=== PATIENT | female | born 1955 | race Caucasian/White ===

== ENCOUNTER 2018-12-26 10:37 | Emergency (ER) | payer OTHER ==
[2018-12-26 11:08] VITALS: BP 131/76
[2018-12-26] MEDS ORDERED: Tetracaine 0.5% OPTH.SOL 15ML* BTL ONE (11:41)
[2018-12-26] MEDS ORDERED: Fluorescein Sodium TOPICAL* 1 MG TEST STRIP OPHTHALMIC ONE (11:41)
--- NOTE | 2018-12-26 11:41 | UC ---
Eye Complaint HPI - HPI Summary HPI Summary: Pt c/o L eye pain that started yesterday. Pt woke up with L eye swollen, redness, and pain today. Discomfort mostly upper lid extending to medial epicanthus, and somewhat post lid. This am noted a little watery drainage, not purulence perse. Does not recall inciting event. Does not wear contact lenses. Has had a sore throat last couple days. No rash. + ear fullness bilat. No fever / chills. Vision not blurry. Planning to go out of town this afternoon. - History of Current Complaint Chief Complaint: UCEye Stated Complaint: EYE COMPLAINT Time Seen by Provider: 12/26/18 11:39 Hx Obtained From: Patient Pain Intensity: 1 - Allergies/Home Medications Allergies/Adverse Reactions: Allergies Allergy/AdvReac Type Severity Reaction Status Date / Time Penicillins Allergy Unknown Verified 12/26/18 11:00 Reaction Details Home Medications: Home Medications Biotin 1 mg PO DAILY 12/26/18 [History Confirmed 12/26/18] Fluticasone/Vilanterol MDI(NF) [Breo Ellipta MDI (NF)] 1 puff INH DAILY [History Confirmed 12/26/18] [place]-3 Fatty Acids/Fish Oil [Fish Oil 1,000 mg Softgel] 1 each PO DAILY [History Confirmed 12/26/18] PMH/Surg Hx/FS Hx/Imm Hx Previously Healthy: Yes - Surgical History Surgical History: Yes Surgery Procedure, Year, and Place: VARICOSE VEINS - Family History Known Family History: Positive: None - Social History Alcohol Use: Occasionally Alcohol Amount: 2 PER WEEK Substance Use Type: None Smoking Status (MU): Former Smoker Amount Used/How Often: PACK A DAY When Did the Patient Quit Smoking/Using Tobacco: 28 YEARS AGO Review of Systems All Other Systems Reviewed And Are Negative: Yes Constitutional: Positive: Negative Skin: Positive: Other - see hpi Eyes: Positive: Other - see hpi ENT: Positive: Sore Throat, Nasal Discharge, Sinus Congestion, Other - see hpi Respiratory: Positive: Cough Cardiovascular: Positive: Negative, Other Gastrointestinal: Positive: Negative Genitourinary: Positive: Negative Motor: Positive: Negative Neurovascular: Positive: Negative Musculoskeletal: Positive: Negative Neurological: Positive: Negative Psychological: Positive: Negative Is Patient Immunocompromised?: No Physical Exam Triage Information Reviewed: Yes Appearance: Well-Appearing, Well-Nourished Vital Signs: Initial Vital Signs Temp 99.4 F 12/26/18 11:02 Pulse 64 12/26/18 11:02 Resp 16 12/26/18 11:02 BP 131/76 12/26/18 11:02 Pulse Ox 96 12/26/18 11:02 Vital Signs Reviewed: Yes Eye Exam: Other - perrla eomi denies vision difficulties. Lids flipped w/o issue. R upper lid red, puffy, tender. L lower lid mild puffy. Flourescein stain neg uptake. No fb detected. L eye is redder than R eye ENT Exam: Other ENT: Positive: Pharyngeal erythema - post pharyng redness, no visible sores / exudates. uvula midline. no stridor., Nasal congestion, TM dull, Other - cerumen in L eac, nonimpacting Neck exam: Normal Neck: Positive: Supple, Nontender, No Lymphadenopathy Respiratory Exam: Normal Respiratory: Positive: Chest non-tender, Lungs clear, Normal breath sounds, No respiratory distress, No accessory muscle use Cardiovascular Exam: Normal Cardiovascular: Positive: RRR, No Murmur, Pulses Normal, Brisk Capillary Refill Abdominal Exam: Normal Abdomen Description: Positive: Nontender Musculoskeletal Exam: Normal - gait steady, moves x 4 exts Neurological Exam: Normal - grossly nonfocal Psychological Exam: Normal - conversing easily and appropriately Skin Exam: Normal - no visible or reported rash, nondiaphoretic. see "eye" Eye Complaint Course/Dx - Course Course Of Treatment: Reviewed coa / tx plan. Questions as posed answered to the best of my ability. Has taken augmentin in the past, without difficulty. Will check with her pcp. Will start ceftin. F/u PCP upon return home, seek medical attention worse or new problems in the meantime. - Differential Dx/Diagnosis Provider Diagnosis: Cellulitis of left eyelid Discharge - Sign-Out/Discharge Documenting (check all that apply): Patient Departure All imaging exams completed and their final reports reviewed: No Studies - Discharge Plan Condition: Stable Disposition: HOME Prescriptions: ceFUROXime TAB(*) [Ceftin TAB 250 MG(*)] 500 mg PO BID #20 tab Olopatadine 0.1% OPHTH (NF) [Patanol 0.1% OPHTH (NF)] 1 drop BOTH EYES BID 14 Days #1 btl Patient Education Materials: Periorbital Cellulitis in Adults (ED), Dry Eye Syndrome (ED) Referrals: Cathy Laughlin MD [Primary Care Provider] - Additional Instructions: Follow up with your primary care physician this week upon return home for eye check. Seek medical attention for worse or new problems. If patanol is covered by insurance, do not start until your eye is back to normal. Please take Probiotic and / or yogurt every day while taking antibiotic. - Billing Disposition and Condition Condition: STABLE Disposition: Home
[2018-12-26] MEDS ORDERED: Tetracaine 0.5% OPTH.SOL 4 ML* 1 DROP BTL ONE (11:56)
== END 2018-12-26 12:32 | disposition home or self-care (01) ==
LOC: UCEAST 10:37
DX: H00.034 Abscess of left upper eyelid (principal); Z88.0 Allergy status to penicillin; Z87.891 Personal history of nicotine dependence
CPT/HCPCS: 87651; 99212; A9270-GY; G0463

== ENCOUNTER 2019-08-24 18:11 | Emergency (ER) | payer OTHER ==
[2019-08-24 18:39] VITALS: BP 133/70
[2019-08-24] MEDS ORDERED: Ondansetron ODT TAB* 4 MG PO ONE (19:07)
[2019-08-24] MEDS ORDERED: Meclizine TAB* 12.5 MG PO ONE (19:07)
--- NOTE | 2019-08-24 19:54 | UC ---
Dizzy HPI HPI Summary: WOKE UP YESTERDAY MORNING FEELING DIZZY. SYMPTOMS IMPROVED THROUGHOUT THE DAY BUT THIS MORNING WOKE UP AGAIN FEELING DIZZY. STATE IN BED MOST OF THE DAY. NO SHORTNESS OF BREATH, CHEST PAIN, VISUAL DISTURBANCES, HEADACHE, WEAKNESS, NUMBNESS/TINGLING. SHE DOES HAVE SOME NAUSEA BUT NO VOMITING. HAS HAD COUGH AND CONGESTION FOR 7-10 DAYS WHICH IS NOW RESOLVED. STATES THE LAST TIME SHE FELT THIS DIZZY WAS ABOUT 20 YEARS AGO WHEN SHE HAD AN INNER EAR INFECTION. IS ALSO CONCERNED ABOUT THE FLU. NO PERSONAL OR FAMILY H/O STROKE. PT IS A NONSMOKER WITH NO SIGNIFICANT PMH. - History Of Current Complaint Chief Complaint: UCDizziness Stated Complaint: EARACHE, DIZZY Time Seen by Provider: 08/24/19 18:57 Hx Obtained From: Patient Onset/Duration: Sudden Onset, Lasting Days - 1 DAY, Still Present Timing: Constant Severity Initially: Moderate Severity Currently: Moderate Pain Intensity: 0 Pain Scale Used: 0-10 Numeric Character: Lightheaded, Dizzy Aggravating Factor(s): Nothing Alleviating Factor(s): Nothing Associated Signs And Symptoms: Positive: Nausea. Negative: Vomiting, Diaphoresis, Tinnitus, Chest Pain, SOB, Palpitations, Unsteady Gait, Visual Changes - Allergies/Home Medications Allergies/Adverse Reactions: Allergies Allergy/AdvReac Type Severity Reaction Status Date / Time Penicillins Allergy Unknown Verified 08/24/19 18:34 Reaction Details Home Medications: Home Medications Fluticasone NASAL SPRAY 50MCG* [Flonase NASAL SPRAY 50MCG*] 2 spray BOTH NARES DAILY 08/24/19 [History Confirmed 08/24/19] PMH/Surg Hx/FS Hx/Imm Hx - Additional Past Medical History Additional PMH: ALLERGIES Respiratory History: Asthma - Surgical History Surgical History: Yes Surgery Procedure, Year, and Place: VARICOSE [facility]INS - Family History Known Family History: Positive: None Family History: NO FAM H/O CVA - Social History Alcohol Use: Occasionally Alcohol Amount: 2 PER WEEK Substance Use Type: None Smoking Status (MU): Former Smoker Amount Used/How Often: PACK A DAY When Did the Patient Quit Smoking/Using Tobacco: 28 YEARS AGO Review of Systems All Other Systems Reviewed And Are Negative: Yes Constitutional: Positive: Negative Eyes: Positive: Negative Respiratory: Positive: Negative Cardiovascular: Positive: Negative Gastrointestinal: Positive: Negative Neurological: Positive: Other - DIZZY. Negative: Headache, Weakness, Paresthesia, Numbness Physical Exam Triage Information Reviewed: Yes Appearance: Well-Appearing, No Pain Distress, Well-Nourished Vital Signs: Initial Vital Signs Temp 98.4 F 08/24/19 18:36 Pulse 56 08/24/19 18:36 Resp 18 08/24/19 18:36 BP 133/70 08/24/19 18:36 Pulse Ox 97 08/24/19 18:36 Laboratory Tests 08/24/19 19:46 Influenza A (Rapid) Negative Influenza B (Rapid) Negative Vital Signs Reviewed: Yes Eyes: Positive: Conjunctiva Clear, Other: - PERRL, EOMI. HORIZONTAL NYSTAGMUS TO THE RIGHT ENT: Positive: Hearing grossly normal, Pharynx normal, TMs normal - LEFT TM RETRACTED Neck: Positive: Supple, Nontender, No Lymphadenopathy Respiratory Exam: Normal Cardiovascular Exam: Normal Abdomen Description: Positive: Soft Musculoskeletal: Positive: No Edema Neurological: Positive: Alert, Muscle Tone Normal, Other: - CN II-XII GROSSLY INTACT BILATERALLY. RAPID ALTERNATING MOVEMENTS INTACT. NEG PRONATOR DRIFT. NEG ROMBERG. 5/5 STRENGTH. HEEL TO LEDESMA INTACT BILATERALLY. TANDEM GAIT CAUTIOUS BUT INTACT. FINGER TO NOSE INTACT. Psychological: Positive: Normal Response To Family, Age Appropriate Behavior Skin: Negative: Rashes Diagnostics - Radiology CT HEAD W/O CONTRAST Radiology Interpretation Completed By: Radiologist Summary of Radiographic Findings: No acute intracranial abnormality. Dizzy Course/Dx - Course Course Of Treatment: PATIENT WITH SUDDEN ONSET OF PERSISTENT DIZZINESS AND NAUSEA. IT IS NOT POSITIONAL AND NOT ASSOCIATED WITH HEAD MOVEMENT. SHE HAS RIGHT-SIDED NYSTAGMUS. CT HEAD UNREMARKABLE. SLIGHT IMPROVEMENT IN SYMPTOMS AFTER 4 MG OF ZOFRAN AND 25 MG OF MECLIZINE. LONG DISCUSSION HAD WITH PATIENT AND HER THAT HOWEVER UNLIKELY IT IS WE ARE UNABLE TO RULE OUT POSTERIOR STROKE IN THE URGENT CARE. [place] AGRE[place] [facility] [place]. - Differential Dx/Diagnosis Provider Diagnosis: Dizziness - Physician Notifications Discussed Patient Care With: Benito Ramos Time Discussed With Above Provider: 20:30 Instructed by Provider To: MD Will See In ED Discharge ED - Sign-Out/Discharge Documenting (check all that apply): Patient Departure All imaging exams completed and their final reports reviewed: Yes - Discharge Plan Condition: Stable Disposition: TRANS [facility] Referrals: Cathy Laughlin MD [Primary Care Provider] - - Billing Disposition and Condition Condition: STABLE Disposition: Trans Higher Lvl of Care Fac
[2019-08-24 19:58] LABS: Influenza A Molecular NEGATIVE (Negative); Influenza B Molecular NEGATIVE (Negative)
== END 2019-08-24 20:49 | disposition short-term general hospital (02) ==
LOC: UCEAST 18:11
DX: R42 Dizziness and giddiness (principal); R11.0 Nausea; J45.909 Unspecified asthma, uncomplicated; Z88.0 Allergy status to penicillin; Z87.891 Personal history of nicotine dependence
CPT/HCPCS: 70450; 99213; A9270-GY; G0463

== ENCOUNTER 2019-08-24 21:04 | Emergency (ER) | payer OTHER ==
--- NOTE | 2019-08-24 21:21 | ED ---
Dizziness - HPI Summary HPI Summary: Patient is a 63 y/o F presenting to [facility] via EMS with complaints of dizziness and nausea. Dizziness is characterized as feeling near-syncopal and unsteady. She reports that Sx onset yesterday morning, 08/23/19, when she awoke. Patient notes that Sx were worse when she awoke this morning, 08/24/19, to the point that she was not able to work. Movement, sitting up aggravates Sx, lying down alleviates Sx. Patient was able to eat some bits of crackers, cheese, and a breakfast bar today, noting that this is less than she typically eats. Patient was evaluated at [facility] today. She states that she was given Meclizine with some relief in Sx. Patient was sent to ED for further evaluation. EMS reported patient had BG of >300, she has no Hx of diabetes. She states that she had PCP check-up with bloodwork in May 2019. Hx of asthma is noted. Patient notes that she had cold Sx in the past few weeks. Home medications and allergies are reviewed. - History Of Current Complaint Chief Complaint: EDDizziness Stated Complaint: DIZZINESS/NAUSEA PER EMS Time Seen by Provider: 08/24/19 21:12 Hx Obtained From: Patient Timing: Days Character: Lightheaded, Dizzy Aggravating Factor(s): Other - movement Alleviating Factor(s): Lying Down, Other - meclizine Associated Signs And Symptoms: Positive: Nausea, Decreased Oral Intake - Allergies/Home Medications Allergies/Adverse Reactions: Allergies Allergy/AdvReac Type Severity Reaction Status Date / Time Penicillins Allergy Unknown Verified 08/24/19 18:34 Reaction Details PMH/Surg Hx/FS Hx/Imm Hx Endocrine/Hematology History: Denies: Hx Diabetes Cardiovascular History: Denies: Hx Pacemaker/ICD, Other Cardiovascular Problems/Disorders Respiratory History: Reports: Hx Asthma Denies: Other Respiratory Problems/Disorders GI History: Denies: Other GI Disorders History: Denies: Other Problems/Disorders Musculoskeletal History: Denies: Hx Rheumatoid Arthritis, Hx Osteoporosis, Other Musculoskeletal History Sensory History: Reports: Hx Contacts or Glasses - READING Denies: Hx Hearing Aid Opthamlomology History: Reports: Hx Contacts or Glasses - READING Neurological History: Denies: Other Neuro Impairments/Disorders Psychiatric History: Denies: Hx Panic Disorder - Cancer History Hx Chemotherapy: No Hx Radiation Therapy: No - Surgical History Surgery Procedure, Year, and Place: VARICOSE [facility]INS Hx Anesthesia Reactions: No Infectious Disease History: No Infectious Disease History: Denies: Traveled Outside the [place] in Last 30 Days - Family History Known Family History: Positive: Other - no FMHx of CVA Family History: no FMHx of CVA - Social History Alcohol Use: Occasionally Alcohol Amount: 2 PER WEEK Substance Use Type: Reports: None Smoking Status (MU): Former Smoker Amount Used/How Often: PACK A DAY Review of Systems ENT: Other - cold Sx Gastrointestinal: Other - positive - decreased appetite Positive: Nausea Neurological: Other - positive - dizziness All Other Systems Reviewed And Are Negative: Yes Physical Exam - Summary Physical Exam Summary: Appearance: Well-appearing, Well-nourished, lying in bed comfortably Skin: Warm, dry, no obvious rash Eyes: sclera anicteric, no conjunctival pallor ENT: mucous membranes moist, pharynx appears normal Neck: Supple, nontender Respiratory: Clear to auscultation, no signs of respiratory distress Cardiovascular: Normal S1, S2. No murmurs. Normal distal pulses in tibial and radial bilaterally. Abdomen: Soft, nontender, normal active bowel sounds present Musculoskeletal: Normal, Strength/ROM Intact Neurological: A&Ox3, awake and alert, mentation is normal, speech is fluent and appropriate Psychiatric: affect is normal, does not appear anxious or depressed Triage Information Reviewed: Yes Vital Signs On Initial Exam: Initial Vitals Temp Pulse Resp BP Pulse Ox 97.8 F 56 17 126/60 95 08/24/19 21:06 08/24/19 21:06 08/24/19 21:06 08/24/19 21:06 08/24/19 21:06 Vital Signs Reviewed: Yes Procedures - Sedation Patient Received Moderate/Deep Sedation with Procedure: No Diagnostics - Vital Signs Vital Signs Temp Pulse Resp BP Pulse Ox 08/24/19 21:06 97.8 F 56 17 126/60 95 - Laboratory Result Diagrams: 08/24/19 21:41 08/24/19 21:41 Lab Statement: Any lab studies that have been ordered have been reviewed, and results considered in the medical decision making process. Dizzy Course/Dx - Course Course Of Treatment: Patient is a 63 y/o F presenting to [facility] via EMS with complaints of dizziness and nausea. Dizziness is characterized as feeling near- syncopal and unsteady. She reports that Sx onset yesterday morning, 08/23/19, when she awoke. Patient notes that Sx were worse when she awoke this morning, , to the point that she was not able to work. Movement aggravates Sx, lying down alleviates Sx. Patient was able to eat some bits of crackers, cheese , and a breakfast bar today, noting that this is less than she typically eats. Patient was evaluated at [facility] today, patient was sent to ED for further evaluation. EMS reported patient had BG of >300, she has no Hx of diabetes. She states that she had PCP check-up with bloodwork in May 2019. Physical exam is unremarkable. Bloodwork was obtained and within normal limits with exception of MCV 99, MCH 33, BUN/creatinine ratio 25.4, glucose 107. UA showed trace ketones. During ED course, patient received fluids and meclizine 25 mg PO. Patient had improvement in Sx after medications. The patient is discharged to home with prescription for meclizine. PCP follow up in three days is advised. Patient is agreeable with this plan. - Diagnoses Provider Diagnoses: Peripheral vertigo Discharge ED - Sign-Out/Discharge Documenting (check all that apply): Patient Departure - discharge - Discharge Plan Condition: Stable Disposition: HOME Prescriptions: Meclizine TAB* [Antivert 12.5 TAB*] 25 mg PO TID PRN #24 tab PRN Reason: Dizziness Patient Education Materials: Benign Paroxysmal Positional Vertigo (ED) Referrals: Cathy Laughlin MD [Primary Care Provider] - 3 Days (if not improving) - Billing Disposition and Condition Condition: STABLE Disposition: Home - Attestation Statements Document Initiated by Kevinibe: Yes Documenting Scribe: KRYSTAL LAL Provider For Whom Kuldip is Documenting (Include Credential): DESMOND DAUGHERTY MD Scribe Attestation: KRYSTAL Cortes, scribed for DESMOND DAUGHERTY MD on 08/25/19 at 0642. Scribe Documentation Reviewed: Yes Provider Attestation: The documentation as recorded by the KRYSTAL orellana accurately reflects the service I personally performed and the decisions made by me, DESMOND DAUGHERTY MD Status of Scribe Document: Viewed
[2019-08-24] MEDS ORDERED: NS 0.9% 1000 ML** 1,000 ML IV ONE (21:27)
[2019-08-24 21:59] LABS: ABS Eosinophils 0.1 10^3/ul (0-0.6); ABS Lymphocytes 1.4 10^3/ul (1.0-4.8); ABS Monocytes 0.3 10^3/ul (0-0.8); ABS Neutrophils 3.3 10^3/ul (1.5-7.7); Eosinophil % 1.5 %; Hematocrit 39 % (35-47); Hemoglobin 13.3 g/dL (12.0-16.0); Lymphocyte % 27.4 %; Mean Corpuscular HGB Conc 34 g/dL (31-36); Mean Corpuscular Hemoglobin 33 pg (27-31); Mean Corpuscular Volume 99 fL (80-97); Mean Platelet Volume 7.4 fL (7.4-10.4); Platelet Count 233 10^3/uL (150-450); Red Blood Count 3.97 10^6 /uL (3.70-4.87); Red Cell Distribution Width 13 % (10-15); White Blood Count 5.2 10^3/uL (3.5-10.8)
[2019-08-24 22:06] LABS: Urine Appearance Clear; Urine Bilirubin Negative (Negative); Urine Blood Negative (Negative); Urine Color Yellow; Urine Glucose Negative (Negative); Urine Ketones Trace (Negative); Urine Nitrite Negative (Negative); Urine Protein Negative (Negative); Urine Specific Gravity 1.018 (1.010-1.030); Urine Urobilinogen Negative (Negative)
[2019-08-24 22:15] LABS: Albumin/Globulin Ratio 1.5 (1-3); BUN/Creatinine Ratio 25.4 (8-20); Calcium 9.5 mg/dL (8.6-10.3); EGFR African American 115.1 (>60); EGFR Non-African American 95.1 (>60); Globulin 2.7 g/dL (2-4); Potassium 3.9 mmol/L (3.5-5.0); Total Bilirubin 0.4 mg/dL (0.2-1.0); Total Protein 6.7 g/dL (6.4-8.9)
[2019-08-24] MEDS ORDERED: Meclizine TAB* 12.5 MG PO ONE (22:46)
[2019-08-24 22:57] VITALS: BP 112/48
== END 2019-08-24 22:55 | disposition home or self-care (01) ==
LOC: ED 21:04
DX: H81.399 Other peripheral vertigo, unspecified ear (principal); J45.909 Unspecified asthma, uncomplicated; Z87.891 Personal history of nicotine dependence; Z88.0 Allergy status to penicillin
CPT/HCPCS: 36415; 80053; 81003; 85025; 96360; 99282; A9270-GY

== ENCOUNTER 2021-04-05 15:34 | Inpatient (IN) ==
[2021-04-05 17:32] LABS: Hematocrit 39 % (35-47); Hemoglobin 12.9 g/dL (12.0-16.0); Mean Corpuscular HGB Conc 34 g/dL (31-36); Mean Corpuscular Hemoglobin 34 pg (27-31); Mean Corpuscular Volume 100 fL (80-97); Mean Platelet Volume 7.4 fL (7.4-10.4); Platelet Count 146 10^3/uL (150-450); Red Blood Count 3.86 10^6 /uL (3.70-4.87); Red Cell Distribution Width 13 % (10-15)
[2021-04-05 17:37] LABS: ABS Neutrophils 0.6 10^3/ul (1.5-7.7)
[2021-04-05 17:39] LABS: INR 1.71 (0.86-1.15)
[2021-04-05] MEDS ORDERED: Cefepime 2 GM in Dextrose 2 GM/50 ML BAG IV ONE (17:41)
[2021-04-05 17:46] LABS: ALT 27 U/L (7-52); AST 24 U/L (13-39); Albumin 3.5 g/dL (3.2-5.2); Albumin/Globulin Ratio 1.3 (1-3); Alkaline Phosphatase 43 U/L (35-149); Anion Gap 6 mmol/L (2-11); Blood Urea Nitrogen 29 mg/dL (6-24); CO2 Carbon Dioxide 27 mmol/L (22-32); Chloride 102 mmol/L (101-111); EGFR African American 69.5 (>60); EGFR Non-African American 57.5 (>60); Globulin 2.7 g/dL (2-4); Glucose 113 mg/dL (70-100); Potassium 3.5 mmol/L (3.5-5.0); Sodium 135 mmol/L (135-145); Total Protein 6.2 g/dL (6.4-8.9)
[2021-04-05 17:57] LABS: Troponin I 0.03 ng/mL (<0.03)
[2021-04-05] MEDS ORDERED: Iodixanol (CONTRAST) 320 MG/ML 100 ML SDV IV ONE (18:00)
[2021-04-05 18:16] LABS: ABS Lymphocytes 0.2 10^3/ul (1.0-4.8); ABS Monocytes 0.1 10^3/ul (0-0.8); Eosinophil % 3.1 %; Lymphocyte % 23.4 %; Nucleated Red Blood Cells % 0.2
[2021-04-05 18:19] LABS: LDH 155 U/L (140-271)
[2021-04-05 19:11] LABS: Uric Acid 4.4 mg/dL (2.3-6.6)
[2021-04-05] MEDS ORDERED: methylPREDNISolone 125 mg 2 ML VIAL IV ONE (21:12)
[2021-04-05] MEDS ORDERED: Albuterol/Ipratropium NEB.SOL (2.5/0.5 MG) 3 ML NEB.SOLN INH PRN (21:14)
[2021-04-05] MEDS ORDERED: Albuterol 2.5mg/3 ml (0.083%) NEB.SOLN INH PRN (21:14)
[2021-04-05] MEDS ORDERED: NS 0.9% 1000 ml BAG 1,000 ML IV ONE (21:16)
[2021-04-05] MEDS ORDERED: Vancomycin per Pharmacy 1 EA NOTE FOLLOW UP PRN (21:17)
[2021-04-05] MEDS ORDERED: NS 0.9% 1000 ml BAG 1,000 ML IV SCH (21:30)
[2021-04-05] MEDS ORDERED: Vancomycin 1,000 MG in NS 0.9% 250 ml 250 ML IVPB ONE (22:00)
[2021-04-05] MEDS ORDERED: Albuterol 2.5mg/3 ml (0.083%) NEB.SOLN INH SCH (22:00)
[2021-04-05] MEDS ORDERED: Albuterol HFA INHALER 8 gm MDI INH ONE (22:36)
[2021-04-06] MEDS: Morphine 2 MG/ML SYRINGE IV SCH ×3 (00:30→06:17)
[2021-04-06 00:51] LABS: C Reactive Protein 402.31 mg/L (<8.01)
[2021-04-06 00:53] LABS: Troponin I 0.01 ng/mL (<0.03)
[2021-04-06 01:03] LABS: Corrected Retic Count 0.9 % (0.5-1.5); Hematocrit for Retic CNT 38 % (35-47); RBC Retic Count 3.81 10^6/uL (3.70-4.87)
[2021-04-06] MEDS: Albuterol HFA INHALER 8 gm MDI INH SCH ×7 (01:20→20:22)
[2021-04-06] MEDS: Cefepime 2 GM in Dextrose 2 GM/50 ML BAG IV SCH ×2 (06:38→18:33)
[2021-04-06 06:40] LABS: Urine Appearance Cloudy; Urine Bilirubin Negative (Negative); Urine Blood 2+ (Negative); Urine Color Yellow; Urine Glucose Negative (Negative); Urine Ketones Trace (Negative); Urine Nitrite Negative (Negative); Urine Protein 1+(30 mg/dL) (Negative); Urine Specific Gravity 1.045 (1.002-1.030); Urine Urobilinogen Negative (Negative)
[2021-04-06 06:44] LABS: INR 1.52 (0.86-1.15)
[2021-04-06 06:54] LABS: Calcium 8.5 mg/dL (8.6-10.3); EGFR African American 114.4 (>60); EGFR Non-African American 94.5 (>60); Hematocrit 40 % (35-47); Hemoglobin 13.2 g/dL (12.0-16.0); Mean Corpuscular HGB Conc 34 g/dL (31-36); Mean Corpuscular Hemoglobin 34 pg (27-31); Mean Corpuscular Volume 100 fL (80-97); Platelet Count 120 10^3/uL (150-450); Potassium 3.6 mmol/L (3.5-5.0); Red Blood Count 3.93 10^6 /uL (3.70-4.87); Red Cell Distribution Width 13 % (10-15); White Blood Count 1.4 10^3/uL (3.5-10.8)
[2021-04-06 07:05] LABS: Urine Bacteria Absent (Absent); Urine Red Blood Cell Trace(0-2/hpf) (Absent); Urine White Blood Cell 1+(6-10/hpf) (Absent)
[2021-04-06] MEDS: Mometasone/Formoter 100/5 MDI INH SCH ×2 (07:36→20:24)
[2021-04-06 07:37] LABS: RBC Morphology Normal (Normal)
[2021-04-06 07:41] LABS: ABS Neutrophils 1.1 10^3/ul (1.5-7.7)
[2021-04-06 07:42] LABS: ABS Lymphocytes 0.2 10^3/ul (1.0-4.8)
[2021-04-06] MEDS ORDERED: cefTRIAXone 1 gm/50 mL NS BAG 1 GM/50 ML BAG IVPB SCH (09:00)
[2021-04-06] MEDS ORDERED: Vancomycin 1000 MG in NS 0.9% 250 ML IVPB SCH (10:30)
[2021-04-06] MEDS ORDERED: Albuterol HFA INHALER 8 gm MDI INH SCH (11:00)
[2021-04-06] MEDS: Morphine 2 MG/ML SYRINGE IV PRN ×3 (13:11→23:31)
[2021-04-07 05:25] LABS: Hematocrit 36 % (35-47); Hemoglobin 12.1 g/dL (12.0-16.0); Mean Corpuscular HGB Conc 34 g/dL (31-36); Mean Corpuscular Hemoglobin 34 pg (27-31); Mean Corpuscular Volume 100 fL (80-97); Mean Platelet Volume 7.9 fL (7.4-10.4); Platelet Count 146 10^3/uL (150-450); Red Blood Count 3.57 10^6 /uL (3.70-4.87); Red Cell Distribution Width 13 % (10-15); White Blood Count 7.2 10^3/uL (3.5-10.8)
[2021-04-07 05:46] LABS: Albumin 3.1 g/dL (3.2-5.2); Albumin/Globulin Ratio 1.1 (1-3); C Reactive Protein 336.3 mg/L (<8.01); Calcium 9.1 mg/dL (8.6-10.3); Globulin 2.9 g/dL (2-4); Potassium 3.5 mmol/L (3.5-5.0); Total Bilirubin 0.5 mg/dL (0.2-1.0)
[2021-04-07] MEDS: Cefepime 2 GM in Dextrose 2 GM/50 ML BAG IV SCH ×2 (05:51→18:20)
[2021-04-07 05:58] LABS: Macrocytosis 1+
[2021-04-07 05:59] LABS: Anisocytosis 1+
[2021-04-07 06:00] LABS: ABS Lymphocytes 0.3 10^3/ul (1.0-4.8); ABS Monocytes 0.5 10^3/ul (0-0.8); ABS Neutrophils 6.5 10^3/ul (1.5-7.7); Eosinophil % 0.1 %; Lymphocyte % 3.5 %
[2021-04-07] MEDS: Albuterol HFA INHALER 8 gm MDI INH SCH ×2 (08:05)
[2021-04-07] MEDS: Mometasone/Formoter 100/5 MDI INH SCH ×2 (08:05→19:34)
[2021-04-07 08:10] LABS: Magnesium 2.1 mg/dL (1.9-2.7)
[2021-04-07] MEDS ORDERED: Potassium Acid Phos 500 mg TAB PO ONE (09:20)
[2021-04-07] MEDS: Azithromycin 500 mg/250 ml NS 500 MG/250 ML BAG IVPB SCH (09:22)
[2021-04-07 09:54] LABS: INR 1.06 (0.86-1.15)
[2021-04-07] MEDS ORDERED: Vancomycin Trough Check NOTE FOLLOW UP ONE (10:00)
[2021-04-07 10:48] LABS: Folate 15.35 ng/mL (5.90-24.80)
[2021-04-07] MEDS: Morphine 2 MG/ML SYRINGE IV PRN (13:32)
[2021-04-07] MEDS: Albuterol HFA INHALER 8 gm MDI INH PRN (13:41)
[2021-04-08 05:06] LABS: Hematocrit 34 % (35-47); Hemoglobin 11.8 g/dL (12.0-16.0); Mean Corpuscular HGB Conc 35 g/dL (31-36); Mean Corpuscular Hemoglobin 34 pg (27-31); Mean Corpuscular Volume 98 fL (80-97); Platelet Count 179 10^3/uL (150-450); Red Blood Count 3.49 10^6 /uL (3.70-4.87); Red Cell Distribution Width 13 % (10-15); White Blood Count 8.7 10^3/uL (3.5-10.8)
[2021-04-08 05:33] LABS: Albumin 3.1 g/dL (3.2-5.2); Albumin/Globulin Ratio 1.1 (1-3); Calcium 9.1 mg/dL (8.6-10.3); EGFR African American 136.7 (>60); Globulin 2.9 g/dL (2-4); Potassium 3.3 mmol/L (3.5-5.0); Total Bilirubin 0.5 mg/dL (0.2-1.0)
[2021-04-08] MEDS: Cefepime 2 GM in Dextrose 2 GM/50 ML BAG IV SCH (06:02)
[2021-04-08] MEDS ORDERED: Potassium Chlor 10 meq TAB PO ONE (07:15)
[2021-04-08 07:44] LABS: Anaplasma phagocytophilum Negative (Negative); B. miyamotoi PCR, B Negative (Negative); Babesia divergens/MO-1 Negative (Negative); Babesia ducani Negative (Negative); Ehrlichia chaffeensis Negative (Negative); Ehrlichia ewingii/canis Negative (Negative); Ehrlichia muris eauclairensis Negative (Negative)
[2021-04-08 07:48] LABS: ABS Eosinophils 0.1 10^3/ul (0-0.6); ABS Lymphocytes 0.7 10^3/ul (1.0-4.8); ABS Monocytes 0.6 10^3/ul (0-0.8); ABS Neutrophils 7.3 10^3/ul (1.5-7.7); Lymphocyte % 8.5 %; Nucleated Red Blood Cells % 0.1
[2021-04-08] MEDS: Mometasone/Formoter 100/5 MDI INH SCH ×2 (08:23→21:59)
[2021-04-08] MEDS: Azithromycin 500 mg/250 ml NS 500 MG/250 ML BAG IVPB SCH (08:47)
[2021-04-08] MEDS ORDERED: Buffered Lidocaine 1% SYRIN 1 ml INTRADERM ONE (13:44)
[2021-04-08] MEDS: Polyethylene Glycol 3350 17 GM PACKET PO PRN (16:01)
[2021-04-08] MEDS: cefTRIAXone 2 GM ADDV.VIAL 2 GM in NS 0.9% 100 ml BAG 100 ML IV SCH (18:21)
[2021-04-09 06:47] LABS: Hematocrit 34 % (35-47); Hemoglobin 11.6 g/dL (12.0-16.0); Mean Corpuscular HGB Conc 34 g/dL (31-36); Mean Corpuscular Hemoglobin 34 pg (27-31); Mean Corpuscular Volume 98 fL (80-97); Mean Platelet Volume 7.4 fL (7.4-10.4); Platelet Count 151 10^3/uL (150-450); Red Blood Count 3.46 10^6 /uL (3.70-4.87); Red Cell Distribution Width 13 % (10-15); White Blood Count 9.4 10^3/uL (3.5-10.8)
[2021-04-09 07:23] LABS: ABS Eosinophils 0.1 10^3/ul (0-0.6); ABS Lymphocytes 0.8 10^3/ul (1.0-4.8); ABS Monocytes 0.9 10^3/ul (0-0.8); ABS Neutrophils 7.6 10^3/ul (1.5-7.7); Eosinophil % 1.3 %; Lymphocyte % 8.3 %
[2021-04-09 08:13] LABS: RBC Morphology Normal (Normal)
[2021-04-09] MEDS: Mometasone/Formoter 100/5 MDI INH SCH ×2 (09:02→19:31)
[2021-04-09] MEDS: Polyethylene Glycol 3350 17 GM PACKET PO PRN ×2 (11:45→20:04)
[2021-04-09] MEDS: cefTRIAXone 2 GM ADDV.VIAL 2 GM in NS 0.9% 100 ml BAG 100 ML IV SCH (17:46)
[2021-04-09] MEDS ORDERED: Magnesium Hydroxide LIQ 30 ML UDC PO PRN (17:56)
[2021-04-10] MEDS: Mometasone/Formoter 100/5 MDI INH SCH ×2 (08:22→20:09)
[2021-04-10] MEDS: Albuterol HFA INHALER 8 gm MDI INH PRN (08:26)
[2021-04-10] MEDS: cefTRIAXone 2 GM ADDV.VIAL 2 GM in NS 0.9% 100 ml BAG 100 ML IV SCH (19:26)
[2021-04-10] MEDS: Senna TAB 8.6 mg TAB PO PRN (19:38)
[2021-04-11] MEDS: Senna TAB 8.6 mg TAB PO PRN (07:04)
[2021-04-11] MEDS: Mometasone/Formoter 100/5 MDI INH SCH (07:40)
[2021-04-11] MEDS: cefTRIAXone 2 GM ADDV.VIAL 2 GM in NS 0.9% 100 ml BAG 100 ML IV SCH ×2 (15:54→16:21)
[2021-04-11 16:41] VITALS: BP 118/60
== END 2021-04-11 17:00 | disposition home or self-care (01) | DRG 871 ==
LOC: ED 15:34 → EDHOLD 20:13 → ICU 23:56 → MED 04-07 14:28
PROVIDERS: ADMIT Pediatrics; ATTEND Internal Medicine